=== PATIENT | female | born 1975 ===

== ENCOUNTER 2017-10-12 09:58 | Inpatient (IN) | payer MEDICAID, OTHER ==
--- NOTE | 2017-10-12 10:46 | OBADHP ---
Datetime: 10/12/2017 10:42 Admit Comment, IP Provider: at 38.4weeks came with c/o rom at 6 am,no ctxs, vb,+fm obhx 5 xnsvd pmh den med pnv all nkda psh den soch de sse +pooling,+nitrazine a/p at 38+weks pprom admit to l7d npoivf labs painmanage start pitocin anticipate nvd Pelvic Type - PN: Adequate Extremities - PN: Normal Abdomen - PN: Normal Back - PN: Normal Breast - PN: Normal Lungs - PN: Normal Heart - PN: Normal Thyroid - PN: Normal Neurologic - PN: Normal HEENT - PN: Normal General - PN: Normal FHR - Baseline A Provider: 150 Contraction Comments Provider: none Comments, ACOG Physical Exam: gravid,non tender ext no marlys sse +nitrazine,+pooling Pool Provider: Positive Nitrazine Provider: Positive IP Hx Assessment: The History has been Reviewed and is Current Vital Signs Provider: Reviewed; Within Normal Limits IP Chief Complaint: Suspected ruptured membranes NICHD Variability Prov Fetus A: Moderate 6-25bpm NICHD Accel Fetus A IP Provider: [id number] FHR Category Provider Fetus A: Category I Dilatation, Provider: 3 Effacement, Provider: 70 Station, Provider: -2 Genitourinary Exam: Normal DTRs - PN: Normal EGA AdmitDate IP: 38.4 IP Adm Impression: Term, intrauterine ; Ruptured Membranes IP Admit Plan: Admit to unit; Initiate labor protocol
[2017-10-12] MEDS ORDERED: Oxytocin 30 UNIT 30 UNITS/500 ML BAG IV PRN (10:48)
[2017-10-12] MEDS ORDERED: Lactated Ringer's 1,000 ML IV SCH (11:00)
[2017-10-12 11:25] LABS: BASO % 0.3 % (0.0-2.0); EOS % 0.1 % (0.0-4.0); HEMOGLOBIN 10.7 g/dL (11.0-16.0); LYMPH # 1.3 K/uL (1.0-4.3); MEAN CELL VOLUME 84.9 fL (81.0-99.0); MEAN CORPUSCULAR HEMOGLOBIN 29.3 pg (27.0-31.0); MEAN CORPUSCULAR HGB CONC 34.5 g/dL (33.0-37.0); MEAN PLATELET VOLUME 11.5 fL (7.2-11.7); MONO # 0.4 K/uL (0.0-0.8); MONO % 3.9 % (0.0-10.0); NEUT # 9.1 K/uL (1.8-7.0); NEUT % 83.7 % (50.0-75.0); NRBC % 0.1 % (0.0-2.0); RBC 3.64 Mil/uL (3.80-5.20); RED CELL DISTRIBUTION WIDTH 14.3 % (11.5-14.5)
[2017-10-12 11:27] LABS: SQUAMOUS EPITHIAL 5 /hpf (0-5); URINE BACTERIA OCC (<OCC); URINE BILIRUBIN NEGATIVE (NEGATIVE); URINE BLOOD 3+ (NEGATIVE); URINE CLARITY Hazy (Clear); URINE COLOR Straw (YELLOW); URINE GLUCOSE (UA) NORMAL (Normal); URINE LEUKOCYTE ESTERASE 1+ Leu/uL (Negative); URINE NITRATE NEGATIVE (NEGATIVE); URINE PROTEIN NEGATIVE (NEGATIVE); URINE UROBILINOGEN NORMAL mg/dL (0.2-1.0)
[2017-10-12 11:29] LABS: WHITE BLOOD COUNT 10.9 K/uL (4.8-10.8)
[2017-10-12 11:35] LABS: ALBUMIN 3.7 g/dL (3.5-5.0); ALT/SGPT 27 U/L (9-52); AST/SGOT 24 U/L (14-36); BLOOD UREA NITROGEN 12 mg/dL (7-17); CALCIUM 9.2 mg/dl (8.6-10.4); GFR AFRICAN-AMERICAN > 60; GFR NON-AFRICAN AMERICAN > 60
[2017-10-12] MEDS ORDERED: Oxytocin 30 UNIT 30 UNITS/500 ML BAG IV ONE (12:02)
[2017-10-12] MEDS ORDERED: Nalbuphine 20 mg/ml Inj (1 ml) IVP STA (14:10)
[2017-10-12] MEDS ORDERED: Fentanyl/Bupivacaine HCl 250 ML EPI ONE (15:24)
--- NOTE | 2017-10-12 15:27 | OBPN ---
Datetime: 10/12/2017 15:25 IP Procedures: Sterile Vag Exam Contraction Comments Provider: q1-4 FHR - Baseline A Provider: 150 IP Progress Note Comment: pt was seen at bed side ve /-2 pt request epidural antjhesia awarew anticipate Vital Signs Provider: Reviewed; Within Normal Limits NICHD Accel Fetus A IP Provider: 15X15 FHR Category Provider Fetus A: Category I NICHD Variability Prov Fetus A: Moderate 6-25bpm Dilatation, Provider: 4 Effacement, Provider: 70 Station, Provider: -2 Datetime: 10/12/2017 10:42 Pool Provider: Positive Nitrazine Provider: Positive
[2017-10-12] MEDS ORDERED: Oxycodone/Acetaminophen 5/325 mg Tab PO PRN ×2 (17:32)
[2017-10-12] MEDS ORDERED: Measles, Mumps, and Rubella 0.5 ML VIAL SC ONE (17:32)
[2017-10-12] MEDS ORDERED: Benzocaine/Menthol 20%-0.5% Topical Spray (60 ml) TOP PRN (17:32)
[2017-10-13 07:41] LABS: BASO % 0.4 % (0.0-2.0); EOS % 0.3 % (0.0-4.0); HEMOGLOBIN 10.3 g/dL (11.0-16.0); LYMPH # 1.7 K/uL (1.0-4.3); LYMPH % 14.3 % (20.0-40.0); MEAN CELL VOLUME 85.2 fL (81.0-99.0); MEAN CORPUSCULAR HEMOGLOBIN 29.5 pg (27.0-31.0); MEAN CORPUSCULAR HGB CONC 34.6 g/dL (33.0-37.0); MEAN PLATELET VOLUME 11.8 fL (7.2-11.7); MONO # 0.7 K/uL (0.0-0.8); MONO % 6.2 % (0.0-10.0); NEUT # 9.2 K/uL (1.8-7.0); NEUT % 78.8 % (50.0-75.0); NRBC % 0.1 % (0.0-2.0); RBC 3.49 Mil/uL (3.80-5.20); RED CELL DISTRIBUTION WIDTH 14.4 % (11.5-14.5); WHITE BLOOD COUNT 11.6 K/uL (4.8-10.8)
[2017-10-13] MEDS ORDERED: Measles, Mumps, and Rubella 0.5 ML VIAL SC ONE (10:00)
[2017-10-14] MEDS ORDERED: Influenza Vaccine 60 mcg/0.5 mL SYR (4YR UP) IM ONE (10:00)
[2017-10-14] MEDS ORDERED: Measles, Mumps, and Rubella 0.5 ML VIAL SC ONE (10:00)
[2017-10-14] MEDS ORDERED: Rubella Virus Vaccine Inj SC ONE (11:00)
[2017-10-14 11:10] VITALS: BP 101/66; PULSE 73; RESP 18; TEMP 98.4
[2017-10-14 20:25] VITALS: O2SAT 98
--- NOTE | 2017-10-16 18:12 | OBPPN ---
Datetime: 10/14/2017 13:57 PP Nausea Prov: Denies PP Flatus Prov: Yes PP BM Prov: Yes PP Heart Prov: Normal PP Lungs Prov: Normal PP Lochia Prov: Normal PP Extremities Prov: Normal PP Progress Prov: Normal PP Comments Phys Exam Prov: Abdominal: Soft, nondistended, tender to deep palpations, fundal height located two finger breaths below the umbilicus. PP Impression Prov: Normal progression PP Plan Prov: Discharge Vital Signs Provider PP: Reviewed Datetime: 10/13/2017 11:41 PP Abdomen/Uterus Prov: Normal PP Progress Note Prov: Patient seen and examined at bedside. No acute distress over night. She is pl easant in bed currently with baby. She has mild pain in her lower abdomen. Patient rated pain at a 6/ 10. She was unaware of medications for pain. Spoke to her and her nurse about the medication and that it is available for her when needed. She is breast feeding only, with no complications. Patient is a mbulating well. She has had 1 bowel movement yesterday evening, passing gas, and urinating without co mplications. Patient is tolerating diet. Patient states she has light vaginal bleeding that is less t panchal a normal period. Has only used 2 pads in the past 24 hours. VS: T: 98.3 BP: 98/61 HR: 80 Labs: 11.6>10.3/29.7<174 PE: Gen: AAOx3, NAD Cardio: Normal RRR. No murmurs, gallops, or rubs Pulm: Normal breathing pattern. Lungs clear to auscultation bilaterally. No wheezing, rails or betty chi. Abdominal: Soft, nondistended, tender to deep palpations, fundal height located two finger breaths below the umbilicus. LE: No peripheral edema noted. A_P: 42 y/o F s/p PPD#1 1. Stable, afebrile 2. pain managed with Percocet and Motrin 3. encourage ambulation and hydration 4. encourage breast feeding 5. plans discussed with Dr. Bridger Crawford, PGY1 Attending Note (Late Entry): patient evaluated by me. I agree with the above. Patient is clinicall y stable.
--- NOTE | 2017-10-16 18:14 | OBPPN ---
Datetime: 10/14/2017 13:57 PP Progress Note Prov: Patient seen and examined at bedside. No acute distress over night. She has m ild pain in her lower abdomen. Patient rated pain at a 4/10. She is breast feeding only, with no comp lications. Patient is ambulating well. Her last bowel movement was this morning. She is passing gas a nd urinating without complications. Patient is tolerating diet with no nausea or vomiting. Patient st ates she has light vaginal bleeding that is less than a normal period. Has used 4 pads in the past 2 4 hours. VS: T: 97.5 BP: 98/62 HR: 70 Labs: 10/13/17: 11.6>10.3/29.7<174 PE: Gen: AAOx3, NAD Cardio: Normal RRR. No murmurs, gallops, or rubs Pulm: Normal breathing pattern. Lungs clear to auscultation bilaterally. No wheezing, rails or betty chi. Abdominal: Soft, nondistended, tender to deep palpations, fundal height located two finger breaths below the umbilicus. LE: No peripheral edema noted. A_P: 42 y/o F s/p PPD#2 1. Stable, afebrile 2. continue pain management with Motrin 3. continue ambulation and hydration 4. continue breast feeding 5. discharge home 6. plans discussed with Dr. Bridger Crawford, PGY1 Attending Note (Late Entry): patient evaluated by me. I agree with the above. Patient iniitially n ot interested in contraception; might consider condoms. Patient is clinically stable.
--- NOTE | 2017-10-16 18:14 | OBDCSUM ---
Datetime: 10/14/2017 12:15 Discharge Diagnosis, Provider: Term Delivered Discharge Diagnosis Prov Other: Advanced maternal age Anemia Contraception counseling
== END 2017-10-14 03:00 | disposition home or self-care (01) | DRG 372 ==
LOC: C.EROB 09:58 → C.4D 10:47 → C.4M 21:11
PROVIDERS: ADMIT Obstetrics & Gynecology; ATTEND Obstetrics & Gynecology
PROC: 10E0XZZ Delivery of Products of Conception, External Approach (ICD-10-PCS; principal; 2017-10-12)
DX: O42.02 Full-term premature rupture of membranes, onset of labor within 24 hours of rupture (principal); O76 Abnormality in fetal heart rate and rhythm complicating labor and delivery; O99.02 Anemia complicating childbirth; D64.9 Anemia, unspecified; Z3A.38 38 weeks gestation of pregnancy; Z37.0 Single live birth